=== PATIENT | male | born 1980 | race Two or more races ===

== ENCOUNTER 2018-06-22 16:59 | Emergency (ER) | payer OTHER ==
[~2018-06-22] VITALS: Ht 167.6 cm; Wt 73.5 kg
[2018-06-22 17:03] VITALS: BP 157/90
== END 2018-06-22 17:16 ==
LOC: ER 17:02
DX: S50.852A Superficial foreign body of left forearm, initial encounter (principal); Z59.0 Homelessness; W86.8XXA Exposure to other electric current, initial encounter; Y93.89 Activity, other specified; Y92.89 Other specified places as the place of occurrence of the external cause; Y99.8 Other external cause status